=== PATIENT | female | born 1980 | race Two or more races ===

== ENCOUNTER 2017-07-15 22:55 | Emergency (ER) | payer SELFPAY ==
--- NOTE | 2017-07-15 23:09 | ER Document Report ---
ED Psych Disorder / Suicide - General Chief Complaint: Psych Problem Stated Complaint: EDIVC Time Seen by Provider: 07/15/17 23:08 Notes: Patient is a 37-year-old female, no past medical history, presents tearful requesting help for her increased depression after her filed for divorce several weeks ago. She said that she has been not sleeping, continuously crying and not herself. She denies drug use, hallucinations, suicidal ideation, homicidal ideation, fevers or neck stiffness. Past Medical History - General Information source: Patient - Social History Smoking Status: Never Smoker Frequency of alcohol use: None Drug Abuse: None Family History: Reviewed & Not Pertinent Review of Systems - Review of Systems Notes: REVIEW OF SYSTEMS: CONSTITUTIONAL: -fevers, -chills EENT: -eye pain, -difficulty swallowing, -nasal congestion CARDIOVASCULAR: -chest pain, -syncope. RESPIRATORY: -cough, -SOB GASTROINTESTINAL: -abdominal pain, -nausea, -vomiting, -diarrhea GENITOURINARY: -dysuria, -hematuria MUSCULOSKELETAL: -back pain, -neck pain SKIN: -rash or skin lesions. HEMATOLOGIC: -easy bruising or bleeding. LYMPHATIC: -swollen, enlarged glands. NEUROLOGICAL: -altered mental status or loss of consciousness, -headache, - neurologic symptoms PSYCHIATRIC: +anxiety, +depression. ALL OTHER SYSTEMS REVIEWED AND NEGATIVE. Physical Exam - Notes Notes: PHYSICAL EXAMINATION: GENERAL: Tearful. HEAD: Atraumatic, normocephalic. EYES: Pupils equal round and reactive to light, extraocular movements intact, sclera anicteric, conjunctiva are normal. ENT: nares patent, oropharynx clear without exudates. Moist mucous membranes. NECK: Normal range of motion, supple without lymphadenopathy LUNGS: Breath sounds clear to auscultation bilaterally and equal. No wheezes rales or rhonchi. HEART: Tachycardia ABDOMEN: Soft, nontender, normoactive bowel sounds. No guarding, no rebound. No masses appreciated. EXTREMITIES: Normal range of motion, no pitting or edema. No cyanosis. NEUROLOGICAL: Cranial nerves grossly intact. Normal speech, normal gait. Normal sensory and motor exams. PSYCH: Tearful mood, anxious affect. Denies SI or HI. SKIN: Warm, Dry, normal turgor, no rashes or lesions noted. Course - Re-evaluation Re-evalutation: 05/02/18 23:19 Pt is not expressing suicidal or homicidal ideation. She is feeling increase thoughts of depression and is very tearful since her filed for divorce. She is requesting mental health help. She is continuously saying, "No drugs, no drugs, no drugs," when asked if she would like a medication for her anxiety tonight. She agrees to stay around until the morning to speak to the mental health team. There is no IVC criteria at this time and she can be discharged home with outpatient follow-up if she chooses so. Discharge - Discharge Clinical Impression: Tearfulness Depression Qualifiers: Depression Type: unspecified Qualified Code(s): F32.9 - Major depressive disorder, single episode, unspecified Condition: Stable Additional Instructions: DEPRESSION: Your evaluation reveals that you have mental depression. While symptoms may be vague, they often include disturbance of sleep, fatigue, loss of appetite , and general loss of interest in life. While depression may be a side effect of drugs, or a reaction to a major change in your life, many cases have no known cause. If depression is acute, and related to a major loss in your life, you can expect it to clear completely with time. If you have been depressed a long time , are prone to repeated bouts of depression or low mood, or have been thinking of suicide, get help. Depression can be treated with anti-depressant medication and counselling. Long-term depression will often take a few weeks to clear, even with appropriate medication. Follow-up care is important. SUICIDAL IDEATION: Suicidal ideation is a common medical term for thoughts about suicide, which may be as detailed as a formulated plan, without the suicidal act itself. Although most people who undergo suicidal ideation do not commit suicide, some go on to make suicide attempts. The range of suicidal ideation varies greatly from fleeting to detailed planning, role playing, and unsuccessful attempts. While thoughts about suicide are common, most people do not carry out serious actions to commit suicide. Based upon your evaluation and discussion with you, we do not believe you are currently at risk to act upon your thoughts of suicide. You have agreed to return to the Emergency Department, at any time , if you feel inclined to act upon your suicidal thoughts. FOLLOW-UP CARE: If you have been referred to a physician for follow-up care, call the physician s office for an appointment as you were instructed or within the next two days. If you experience worsening or a significant change in your symptoms, notify the physician immediately or return to the Emergency Department at any time for re-evaluation. Forms: Elevated Blood Pressure Referrals: [facility] [Provider Group] - Follow up as needed
[2017-07-15] MEDS ORDERED: HYDROXYZINE PAMOATE 25 MG CAPSULE PO PRN (23:15)
--- NOTE | 2017-07-16 03:09 | ER Document Report ---
ED Psych Disorder / Suicide - General Chief Complaint: Psych Problem Stated Complaint: EDIVC Time Seen by Provider: 07/15/17 23:08 Notes: Patient is initially seen in the emergency department by Dr. Melendez. Was scheduled to be discharged. Apparently patient became erratic. Was refusing to leave. Patient's mother came and stated that there is no way she could take her home. Patient is sitting in the floor rocking back and forth. Acting paranoid. Stating that she wants to pray. Will not answer questions. Will not cooperate. Appears paranoid. The in the process of separation from significant other. TRAVEL OUTSIDE OF THE [place] IN LAST 30 DAYS: No - HPI Patient complains to provider of: Bizarre behavior - Related Data Allergies/Adverse Reactions: No Known Allergies Allergy (Verified 07/16/17 00:24) Past Medical History - General Information source: Patient - Social History Smoking Status: Unknown if Ever Smoked Frequency of alcohol use: None Drug Abuse: None Lives with: Alone Family History: Reviewed & Not Pertinent Patient has suicidal ideation: Yes Patient has homicidal ideation: No Renal/ Medical History: Denies: Hx Peritoneal Dialysis Review of Systems - Review of Systems -: Yes ROS unobtainable due to patient's medical condition Physical Exam - Vital signs Vitals: Pulse Resp BP Pulse Ox 99 20 142/76 H 100 07/15/17 23:54 07/15/17 23:54 07/15/17 23:54 07/15/17 23:54 Interpretation: Normal - General General appearance: Appears well, Alert - HEENT Head: Normocephalic, Atraumatic Eyes: Normal Pupils: PERRL - Respiratory Respiratory status: No respiratory distress Chest status: Nontender Breath sounds: Normal Chest palpation: Normal - Cardiovascular Rhythm: Regular Heart sounds: Normal auscultation Murmur: No - Abdominal Inspection: Normal Distension: No distension Bowel sounds: Normal Tenderness: Nontender Organomegaly: No organomegaly - Back Back: Normal, Nontender - Extremities General upper extremity: Normal inspection, Nontender, Normal color, Normal ROM , Normal temperature General lower extremity: Normal inspection, Nontender, Normal color, Normal ROM , Normal temperature, Normal weight bearing. No: Jesenia's sign - Neurological Neuro grossly intact: Yes Cognition: Normal Orientation: AAOx4 [place] Coma Scale Eye Opening: Spontaneous [place] Coma Scale Verbal: Oriented [place] Coma Scale Motor: Obeys Commands [place] Coma Scale Total: 15 Speech: Normal Motor strength normal: LUE, RUE, LLE, RLE Sensory: Normal - Psychological Associated symptoms: Anxious, Irritable, Hindu preoccupation, Tearful, Uncooperative - Skin Skin Temperature: Warm Skin Moisture: Dry Skin Color: Normal Course - Re-evaluation Re-evalutation: 07/16/17 04:18 At this time patient is manifesting some erratic labile behavior. Uncooperative. In my opinion I do not believe patient is currently safe to go home. Patient is unable to be reasoned with. Has poor insight and judgment. Will have mental health see. Will place her on a temporary 24 hour hold until mental health can evaluate. Will medicate if needed. - Vital Signs Vital signs: Temp Pulse Resp BP Pulse Ox 88 20 133/72 H 99 07/16/17 05:28 07/16/17 05:28 07/16/17 05:28 07/16/17 05:28 - Laboratory Result Diagrams: 07/16/17 03:41 07/16/17 03:41 Laboratory results interpreted by me: 07/16/17 07/16/17 07/16/17 03:36 03:41 03:41 Plt Count 149 L Potassium 3.3 L Glucose 131 H Urine Ketones 80 H Urine Blood SMALL H Ur Leukocyte Esterase LARGE H Salicylates < 1.0 L Acetaminophen < 10 L - EKG Interpretation by Me EKG shows normal: Sinus rhythm, Ririe, Intervals, QRS Complexes, ST-T Waves Discharge - Discharge Condition: Stable Additional Instructions: DEPRESSION: Your evaluation reveals that you have mental depression. While symptoms may be vague, they often include disturbance of sleep, fatigue, loss of appetite , and general loss of interest in life. While depression may be a side effect of drugs, or a reaction to a major change in your life, many cases have no known cause. If depression is acute, and related to a major loss in your life, you can expect it to clear completely with time. If you have been depressed a long time , are prone to repeated bouts of depression or low mood, or have been thinking of suicide, get help. Depression can be treated with anti-depressant medication and counselling. Long-term depression will often take a few weeks to clear, even with appropriate medication. Follow-up care is important. SUICIDAL IDEATION: Suicidal ideation is a common medical term for thoughts about suicide, which may be as detailed as a formulated plan, without the suicidal act itself. Although most people who undergo suicidal ideation do not commit suicide, some go on to make suicide attempts. The range of suicidal ideation varies greatly from fleeting to detailed planning, role playing, and unsuccessful attempts. While thoughts about suicide are common, most people do not carry out serious actions to commit suicide. Based upon your evaluation and discussion with you, we do not believe you are currently at risk to act upon your thoughts of suicide. You have agreed to return to the Emergency Department, at any time , if you feel inclined to act upon your suicidal thoughts. FOLLOW-UP CARE: If you have been referred to a physician for follow-up care, call the physician s office for an appointment as you were instructed or within the next two days. If you experience worsening or a significant change in your symptoms, notify the physician immediately or return to the Emergency Department at any time for re-evaluation. Forms: Elevated Blood Pressure Referrals: [facility] [Provider Group] - Follow up as needed
[2017-07-16 03:59] LABS: ABSOLUTE LYMPHOCYTES (AUTO) 1.4 10^3/uL (0.5-4.7); ABSOLUTE MONOCYTES (AUTO) 0.4 10^3/uL (0.1-1.4); ABSOLUTE NEUT (AUTO) 5.6 10^3/uL (1.7-8.2); BASOPHILS % (AUTO) 0.3 % (0-2); HEMATOCRIT 42.9 % (36.0-47.0); HEMOGLOBIN 14.7 g/dL (12.0-15.5); LYMPHOCYTES % (AUTO) 18.8 % (13-45); MEAN CORPUSCULAR HEMOGLOBIN 32.1 pg (27.0-33.4); MEAN CORPUSCULAR HGB CONC 34.2 g/dL (32.0-36.0); MEAN CORPUSCULAR VOLUME 94 fl (80-97); MONOCYTES % (AUTO) 5.4 % (3-13); PLATELET COUNT 149 10^3/uL (150-450); RED BLOOD COUNT 4.57 10^6/uL (3.72-5.28); SEGMENTED NEUTROPHILS % (AUTO) 75.5 % (42-78); TOTAL CELLS COUNTED % (AUTO) 100 %; WHITE BLOOD COUNT 7.5 10^3/uL (4.0-10.5)
[2017-07-16 04:05] LABS: APPEARANCE,URINE CLOUDY; BILIRUBIN,URINE NEGATIVE (NEGATIVE); COLOR,URINE YELLOW; GLUCOSE, URINE NEGATIVE (NEGATIVE); KETONES,URINE 80 mg/dL (NEGATIVE); LEUKOCYTE ESTERASE,URINE LARGE (NEGATIVE); NITRITE,URINE NEGATIVE (NEGATIVE); PROTEIN,URINE NEGATIVE (NEGATIVE); URINE SPECIFIC GRAVITY 1.023; UROBILINOGEN,URINE NEGATIVE mg/dL (<2.0)
[2017-07-16 04:24] LABS: ALANINE AMINOTRANSFERASE 52 U/L (9-52); ALBUMIN 4.5 g/dL (3.5-5.0); ALKALINE PHOSPHATASE 71 U/L (38-126); ANION GAP 16 (5-19); ASPARTATE AMINO TRANSFERASE 33 U/L (14-36); BILIRUBIN,DIRECT 0.2 mg/dL (0.0-0.4); BILIRUBIN,TOTAL 1.2 mg/dL (0.2-1.3); BLOOD UREA NITROGEN 12 mg/dL (7-20); CALCIUM 9.6 mg/dL (8.4-10.2); CARBON DIOXIDE 22 mmol/L (22-30); CHLORIDE 106 mmol/L (98-107); GLUCOSE 131 mg/dL (75-110); POTASSIUM 3.3 mmol/L (3.6-5.0); SODIUM 143.5 mmol/L (137-145); TOTAL PROTEIN 7.2 g/dL (6.3-8.2)
[2017-07-16 04:25] LABS: ACETAMINOPHEN < 10 ug/mL (10-30); ALCOHOL < 10 mg/dL (NONE DETECTED); SALICYLATE < 1.0 mg/dL (2.0-20.0)
[2017-07-16 08:17] LABS: URINE AMPHETAMINES SCREEN NEGATIVE; URINE BARBITURATES SCREEN NEGATIVE; URINE BENZODIAZEPINES SCREEN NEGATIVE; URINE COCAINE SCREEN NEGATIVE; URINE MARIJUANA (THC) SCREEN NEGATIVE; URINE METHADONE SCREEN NEGATIVE; URINE PHENCYCLIDINE SCREEN NEGATIVE
--- NOTE | 2017-07-16 11:30 | ER Document Report ---
Doctor's Note Notes: 07/16/17 11:29 Patient has been seen and evaluated resting comfortably no acute distress. Laboratory values previous provider note and vital signs have been evaluated. Patient otherwise looks to be stable for disposition/transfer. Resting comfortably and able to engage patient states she is currently depressed undergoing separation been since 2011. Patient states she does have 2 dogs at home otherwise is just requesting help patient answers very short otherwise patient states she still feels the same as she did when she came in last night.
[2017-07-16] MEDS ORDERED: BENZTROPINE MESYLATE INJ 2 MG/2 ML AMPULE IM ONE (12:40)
[2017-07-16] MEDS ORDERED: OLANZAPINE INJ/PF 10 MG SDV IM ONE (12:40)
--- NOTE | 2017-07-16 23:42 | EKG REPORT ---
SEVERITY:- OTHERWISE NORMAL ECG - SINUS RHYTHM BORDERLINE RIGHT AXIS DEVIATION : Confirmed by: Tapan Lorenz 16-Jul-2017 23:41:55
[2017-07-17] MEDS ORDERED: OLANZAPINE INJ/PF 10 MG SDV IM ONE (05:03)
--- NOTE | 2017-07-17 05:06 | ER Document Report ---
Doctor's Note Notes: 07/17/17 05:04 Patient became emotionally very upset after another psych patient start becoming aggressive towards staff and being very well. Mrs. Roach is now laying on the floor and shaking and singing a song. She will not get in bed. She would not acknowledge time there and seems almost lost some emotional distress. I will give her a dose of Zyprexa as she seemed to tolerate this before. We will then try to get her back in bed and get her to calm down. Dictation of this chart was performed using voice recognition software; therefore, there may be some unintended grammatical errors.
[2017-07-17 06:17] VITALS: BP 128/75
--- NOTE | 2017-07-17 09:22 | ER Document Report ---
Doctor's Note Notes: 07/17/17 09:22 As the rounding physician for our psychiatric patients, I have reviewed the chart, vitals, lab work. Patient has been examined and noted to be resting comfortably in no distress. I am awaiting mental health in put. 07/17/17 13:21
[2017-07-17] MEDS ORDERED: OLANZAPINE 2.5 MG TABLET PO ONE (13:22)
--- NOTE | 2017-07-18 16:23 | PSYCHOLOGICAL NOTE ---
Psych Note - Psych Note Psych Note: Reason for consult: depression Patient is initially seen in the emergency department by Dr. Melendez. Was scheduled to be discharged. Apparently patient became erratic. Was refusing to leave. Patient's mother came and stated that there is no way she could take her home. Patient is sitting in the floor rocking back and forth. Acting paranoid. Stating that she wants to pray. Will not answer questions. Will not cooperate. Appears paranoid. The in the process of separation from significant other. Upon entering patient's room clinician observed patient standing facing the sink just looking down the drain. Patient disclosed she does not know why she is currently on [facility] ED but states she does know that she requested to come. Patient appears to be responding to internal stimuli with a significant processing delay between asking questions and her response. Patient is observed looking around with little attention to clinician. Patient is observed talking under her breath. Patient has very flat affect with intermittent times of crying. Patient is redirectable however wants to lay on the floor without a blanket. Patient is noted to have difficulty answering questions and can only ask one question at a time that is yes or no answers. Medication recommendations per [facility]'s contracted psychiatrist Dr. Ling are as follows 1. Zyprexa 5 mg now for acute psychosis and mood stabilization 2. Cogentin 1 mg now for prevention of any possible side effects from Zyprexa 298.9 (F29) unspecified psychotic event Impression\plan: Patient is recommended for IVC. Patient is presenting in psychosis with hallucinations i.e. responding to internal stimuli. Medication recommendations have been provided. Patient will be reevaluated. Dr. Frederick was consulted and the care and management of this patient; attending physician is in agreement with recommendations and disposition.
--- NOTE | 2017-07-18 16:33 | PSYCHOLOGICAL NOTE ---
Psych Note - Psych Note Psych Note: Reason for consult: depression Patient is initially seen in the emergency department by Dr. Melendez. Was scheduled to be discharged. Apparently patient became erratic. Was refusing to leave. Patient's mother came and stated that there is no way she could take her home. Patient is sitting in the floor rocking back and forth. Acting paranoid. Stating that she wants to pray. Will not answer questions. Will not cooperate. Appears paranoid. The in the process of separation from significant other. Clinician conducted checking with patient Patient is presenting improved she is able to have a conversation with clinician to disclose that she has been having difficulty because her is her. Patient's lives in [place] she is currently in the local area living with her mother. Patient disclosed that she is not "crazy" she just is heartbroken. She denies any history of previous events. When asked if she is sees or hears anything that confuses her scares her she disclosed that she is however denies that this is a problem stating "I am just overwhelmed by my emotions... my brain just will not stop." Patient's mother and father arrive at patient's bedside. Patient's father disclosed the patient has no history of mental health however disclosed the patient is going through divorce in which her took complete care of the patient "she was completely dependent on him." Patient's mother disclosed she does not have any concerns for the patient returning home she just is worried about the patient. She disclosed that on Thursday the patient seemed to have been improving even dancing and going out with her friends however when she returned home that evening she became very upset and started screaming outside. Medication recommendations per [facility]'s contracted psychiatrist Dr. Ling are as follows 1. Zyprexa 2.5mg for mood stabilization and psychotic features 298.9 (F29) unspecified psychotic event Impression\\plan: Patient is recommended for rescind of IVC and is cleared from acute psychiatric services. Patient discloses depression over her her. Patient's father disclosed the patient was completely dependent on her . Patient's mother discloses that the patient was previously doing better; however, the patient when out with friends directly prior to psychotic event. Patient denies using any substances; however, is unclear how patient's presentation could completely change within an hour. Patient discloses no concern for some of her hallucinations stating that is just from her difficulty in processing her emotions. Patient is currently going through stressful time with a divorce from her . Patient's mother and father disclosed no concern with the patient returning home and agreed to be part of the patient's discharge plan to ensure she has no access to medications or weapons and follows through with mental health recommendations. While patient originally refused to take medications she confirms she would take a week's prescription to help her in this immediate crisis. Dr. Frederick was consulted and the care and management of this patient; attending physician is in agreement with recommendations and disposition.
== END 2017-07-17 13:35 | disposition home or self-care (01) ==
LOC: ER 22:55
DX: F32.3 Major depressive disorder, single episode, severe with psychotic features (principal); R45.83 Excessive crying of child, adolescent or adult
CPT/HCPCS: 93005; 99285; 96372; 36415; 87086; 80307 ×4; 84703; 85025; 80053; 81001; 93010; J0515; J3490